=== PATIENT | female | born 1960 | race Caucasian/White ===

== ENCOUNTER → 2021-09-14 | Outpatient (CLI) | payer BC | LOC: RAD 09:46 | DX: M17.12 Unilateral primary osteoarthritis, left knee (principal) ==

== ENCOUNTER 2022-02-27 21:04 | Emergency (ER) | payer BC ==
[~2022-02-27] VITALS: Ht 175.3 cm; Wt 85.5 kg
[2022-02-27] MEDS ORDERED: PLAQUENIL200 MG PO (21:12)
[2022-02-27] MEDS ORDERED: TOPROL XL 50MG50 MG PO (21:13)
[2022-02-27] MEDS ORDERED: ADULT ASPIRIN R81 MG PO (21:13)
[2022-02-27] MEDS ORDERED: CLOPIDOGREL PO (21:13)
[2022-02-27] MEDS ORDERED: PROZAC10 M2 PO (21:13)
[2022-02-27] MEDS ORDERED: COZAAR25 M1 PO (21:14)
[2022-02-27] MEDS ORDERED: CRESTOR20 MG PO (21:15)
[2022-02-27] MEDS ORDERED: NITROSTAT0.4 M1 SL (21:16)
[2022-02-27 21:54] LABS: BASO # 0.01 K/mm3 (0.02-0.10); EOS # 0.07 K/mm3 (0.04-0.40); EOS % 0.9 % (1.0-5.0); HEMOGLOBIN 13.4 g/dL (12.5-16.0); LYMPH# 1.89 K/mm3 (1.50-4.00); MEAN CELL VOLUME 95 fl (78-100); MEAN CORPUSCULAR HEMOGLOBIN 31 pg (27-31); MEAN CORPUSCULAR HGB CONC 33 g/dL (33-37); MEAN PLATELET VOLUME 8.7 fl (7.4-10.4); MONO # 0.74 K/mm3 (0.20-0.80); NEU # 4.74 K/mm3 (1.40-6.50); PLATELET COUNT 254 K/mm3 (130-400); RED BLOOD COUNT 4.33 M/mm3 (4.10-5.30); RED CELL DISTRIBUTION WIDTH 13.1 % (11.5-14.5); WHITE BLOOD COUNT 7.5 K/mm3 (4.8-10.8)
[2022-02-27 22:01] LABS: ALBUMIN 4.2 g/dL (3.5-5.0)
[2022-02-27 22:02] LABS: POTASSIUM 3.5 mmol/L (3.5-5.1)
[2022-02-27 22:04] LABS: TOTAL PROTEIN 6.8 g/dL (6.4-8.3)
[2022-02-27 22:04] LABS: URINE APPEARANCE HAZY; URINE BILIRUBIN NEGATIVE (NEGATIVE); URINE BLOOD NEGATIVE (NEGATIVE); URINE COLOR YELLOW; URINE GLUCOSE NEGATIVE (NEGATIVE); URINE KETONE NEGATIVE (NEGATIVE); URINE LEUKOCYTE ESTERASE NEGATIVE (NEGATIVE); URINE NITRATE NEGATIVE (NEGATIVE); URINE PROTEIN(semi-quant) NEGATIVE (NEGATIVE); URINE UROBILINOGEN NORMAL (NORMAL)
[2022-02-27 22:06] LABS: TOTAL BILIRUBIN 0.4 mg/dL (0.2-1.2)
[2022-02-27 22:06] LABS: URINE WBC 0-1 /hpf (0-3)
[2022-02-28 00:22] VITALS: BP 142/95
== END 2022-02-28 00:22 | disposition home or self-care (01) ==
LOC: ED 21:04
PROVIDERS: Physician Assistant
DX: R07.2 Precordial pain (principal); Z98.61 Coronary angioplasty status